=== PATIENT | female | born 1965 | race Caucasian/White ===

== ENCOUNTER 2017-01-20 09:22 | Emergency (ER) | payer OTHER ==
[~2017-01-20] VITALS: Ht 149.9 cm; Wt 51.1 kg
[2017-01-20 09:45] LABS: HEMATOCRIT 43.5 % (36.0-46.0); MCHC 33.3 G/DL (30.0-36.0); MCV 98.9 FL (83-99); MEAN PLAT.VOLUME 10.1 uM^3 (9.5-12.4); PLATELET COUNT 173 K/uL (156-360); RBC DIS.WIDTH-SD 42.9 % (39-53); WHITE BLOOD COUNT 5.1 K/uL (4.1-10.2)
[2017-01-20 10:09] LABS: CHLORIDE 100 mEq/L (99-109)
[2017-01-20 10:10] LABS: POTASSIUM 3.8 mEq/L (3.7-5.4); SODIUM 135 mEq/L (136-147)
[2017-01-20 10:11] LABS: GLUCOSE 86 mg/dL (70-99)
[2017-01-20 10:13] LABS: ANION GAP 12 MEQ/L (2-14)
[2017-01-20 10:15] LABS: GFR ESTIMATE (CALCULATED) > 59 mL/min/
[2017-01-20 10:16] LABS: UREA NITROGEN (BUN) 10 mg/dL (9-23)
[2017-01-20 10:24] LABS: QUANTITATIVE HCG < 4.0 MIU/ML
[2017-01-20] MEDS ORDERED: MUCUS ER600 MG PO (11:14)
[2017-01-20] MEDS ORDERED: NAPROSYN500 MG PO (11:14)
[2017-01-20] MEDS ORDERED: TRAMADOL HCL50 MG PO (11:14)
[2017-01-20] MEDS ORDERED: TESSALON PERLE100 MG PO (11:14)
[2017-01-20 11:36] VITALS: BP 102/68
== END 2017-01-20 11:37 | disposition home or self-care (01) ==
LOC: EME 09:22
PROVIDERS: Emergency Medicine
DX: J06.9 Acute upper respiratory infection, unspecified (principal); R51 Headache; J32.9 Chronic sinusitis, unspecified
CPT/HCPCS: 70450; 71020; 80048; 84702; 85027; 99281; 99283